=== PATIENT | male | born 1950 | race Caucasian/White ===

== ENCOUNTER 2016-10-18 16:37 | Inpatient (IN) | payer OTHER ==
[~2016-10-18] VITALS: Ht 188 cm; Wt 125.6 kg
--- NOTE | ~2016-10-18 | OR ---
PATIENT'S NAME: TATIANA HAYWOOD [facility] AGE: 66 Y [address] ROOM: [place] [address] LOCATION: GPCU ADMIT DATE: 10/18/2016 OR/Procedure Report DISCHARGE DATE: FAMILY PHYSICIAN: Parminder Mchugh MD ATTENDING PHYSICIAN: RODOLFO GOMEZ SURGEON: Valdemar Dhaliwal MD ANIMAL ASSISTED THERAPIST: DATE OF PROCEDURE: 10/19/2016 PREOPERATIVE DIAGNOSIS: Bleeding anorectal ulcer. POSTOPERATIVE DIAGNOSIS: Bleeding anorectal ulcer. PROCEDURES PERFORMED: Suture ligation of bleeding anorectal ulcer. ANESTHESIA: General endotracheal. INDICATIONS: The patient is a 66-year-old male with a history of ulcerative colitis, who presented to the hospital with rectal pain and bleeding yesterday. He underwent an anoscopy today, which revealed a bleeding anorectal ulcer. This could not be controlled endoscopically, and therefore, I was asked to see the patient for surgery. Risks and benefits of procedure were discussed with the patient's since the patient had just finished anesthesia, and consent was obtained. PROCEDURE IN DETAIL: After general anesthesia was obtained, the patient was prepped and draped in the usual sterile fashion. The patient was placed into lithotomy position prior to prepping and draping. Anoscope was placed and we were able to see an ulceration that was bleeding. It was approximately 1 cm in length at the anorectal verge. A 3-0 chromic suture was used to ligate the ulcer. Lidocaine with epinephrine was infused into this site for pain control. Careful check of the remainder of the anorectal area revealed no areas of bleeding. A Gelfoam sponge was placed in the anorectal area as well, and gauze padding was placed over the rectum that was held in place with net underwear. COUNT RESULTS: At the end of the procedure, sponge and needle counts were correct. ESTIMATED BLOOD LOSS: Minimal. POSTOPERATIVE CONDITION: The patient was transferred to the PACU, extubated in stable condition. PATIENT'S NAME: TATIANA HAYWOOD [facility] AGE: 66 Y [address] ROOM: [place] [address] LOCATION: GPCU ADMIT DATE: 10/18/2016 OR/Procedure Report DISCHARGE DATE: FAMILY PHYSICIAN: Parminder Mchugh MD ATTENDING PHYSICIAN: RODOLFO GOMEZ MD AZEEM IZAGUIRRE/alessandra /[id number] d: 10/19/16 2336 t: 10/22/16 2229, OPERATIVE SUMMARY
--- NOTE | ~2016-10-18 | ER ---
PATIENT'S NAME: TATIANA HAYWOOD [facility] AGE: 66 Y [address] ROOM: [place] [address] LOCATION: GPCU ADMIT DATE: 10/18/2016 ER/Outpatient Report DISCHARGE DATE: FAMILY PHYSICIAN: Parminder Mchugh MD ATTENDING PHYSICIAN: ORDOLFO GOMEZ Time of Patient's Arrival: 1637 hours. Time of Patient's Evaluation: 1650 hours. CHIEF COMPLAINT: Rectal bleeding. HISTORY OF PRESENT ILLNESS: This is a 66-year-old male who presents to the ER with rectal bleeding. He states he has history of ulcerative colitis. He states he has issues at times with constipation. He states he used an enema yesterday morning and had some pain associated with that and afterwards had multiple bowel movements that were bright red blood. He states now every time he has a bowel movement he has bright red blood with clots. He states that he had to use his 's pads in his underwear to catch the blood last evening, but now he only notices blood when he has a bowel movement. He states he is currently on Remicade for his ulcerative colitis and had that injection a few weeks ago. He also had a recent stent placed in his heart by Dr. Carranza at [facility], and since that time, he has been on aspirin and Plavix. He states he has not been running any fevers at home. He describes it he has crampy abdominal pain in his lower abdomen. He has had no troubles with urination, no cough, no shortness of breath or chest pain. ALLERGIES: PHENERGAN. MEDICATIONS: Please see medication list in nurse's notes. PAST MEDICAL HISTORY: 1. Ulcerative colitis. 2. Chronic kidney disease, stage 3. 3. Diabetes type 2. 4. Hypertension. 5. Coronary artery disease with history of CABG and recent cardiac stent placement. 6. Hyperlipidemia. 7. Acid reflux. 8. Atrial fibrillation. 9. History of ventricular tachycardia and ventricular fibrillation. He does PATIENT'S NAME: TATIANA HAYWOOD [facility] AGE: 66 Y [address] ROOM: [place] [address] LOCATION: GPCU ADMIT DATE: 10/18/2016 ER/Outpatient Report DISCHARGE DATE: FAMILY PHYSICIAN: Parminder Mchugh MD ATTENDING PHYSICIAN: RODOLFO GOMEZ have an AICD implantation. He has systolic and diastolic congestive heart failure. SOCIAL HISTORY: He does have a history of smoking in the past and drinks alcohol socially. REVIEW OF SYSTEMS: All systems were reviewed and were negative with the exception of those discussed in the HPI. PHYSICAL EXAMINATION: VITAL SIGNS: Height 6 feet 2 inches stated, weight 128.3 kg taken, blood pressure is 149/80, pulse 76, respirations 16, temperature 96.9 degrees tympanically, and saturations 97% on room air. Sayner Coma Score is 15. GENERAL: Alert and obese male, in no obvious distress. HEENT: Head: Normocephalic. He does display moist mucous membranes. Eyes: Pupils are equal and reactive to light. NECK: Supple. No lymphadenopathy. LUNGS: Clear to auscultation bilaterally. HEART: Regular rate and rhythm. ABDOMEN: Soft. Does have some mild tenderness in his lower abdomen with palpation. No guarding. No rebound tenderness. Has good bowel sounds throughout. No masses are palpated. EXTREMITIES: No clubbing or cyanosis. He does have bilateral 1+ pitting edema to his lower extremities. NEURO: Cranial nerves 2 through 12 grossly intact. Gait is steady without assistance. SKIN: Warm, dry, and intact. LABORATORY DATA: Clot was drawn. CBC: White count is 13.2, hemoglobin is 12.8, platelets 261. INR is 1.01. CMS: Sodium 141, potassium 3.5, glucose 165, BUN 30, creatinine 1.9, and estimated GFR is 36. Fecal stool sample was obtained and does show positive occult blood, a few white blood cells. Ova and parasites screens were negative. C. difficile was negative. CT scan of the abdomen does show he has some rectal wall thickening with possible intraluminal blood, no mass noted. IMPRESSION: 1. Rectal bleeding with history of ulcerative colitis. 2. Acute on chronic kidney disease. 3. History of coronary artery disease with recent cardiac stent placement. 4. History of insulin-dependent diabetes. Hypokalemia. PATIENT'S NAME: TATIANA HAYWOOD [facility] AGE: 66 Y [address] ROOM: [place] [address] LOCATION: GPCU ADMIT DATE: 10/18/2016 ER/Outpatient Report DISCHARGE DATE: FAMILY PHYSICIAN: Parminder Mchugh MD ATTENDING PHYSICIAN: RODOLFO GOMEZ ASSESSMENT AND PLAN: Discussed the patient's care Dr. Howard. The patient's primary care physician is Dr. Parminder Mchugh. Therefore, we called the Hospitalist Service and Dr. Gomez will be admitting the patient. We will be turning the care over to Dr. Gomez in the Hospitalist Service at this time. The patient understands and agrees with care. BRITT DELGADILLO PA-C FOR MD KJ PIERRE/alessandra /[id number] d: t: 10/23/16 1329, OUTPATIENT REPORT
--- NOTE | ~2016-10-18 | CON ---
PATIENT'S NAME: TATIANA HAYWOOD [facility] AGE: 66 Y [address] ROOM: [place] [id number] LOCATION: GPCU ADMIT DATE: 10/18/2016 Consultation DISCHARGE DATE: 10/20/2016 FAMILY PHYSICIAN: Parminder Mchugh MD ATTENDING PHYSICIAN: Georges Stone DATE OF CONSULTATION: 10/19/2016 PRINCIPAL DIAGNOSES: 1. Bleeding from anorectal ulcer. 2. Inflammatory bowel disease. 3. Obesity. HISTORY OF PRESENT ILLNESS: The patient is a 66-year-old morbidly obese male who has a history of inflammatory bowel disease as well as coronary artery disease, who is on both aspirin and Plavix. The patient presented yesterday with anal pain and rectal bleeding. He underwent endoscopy today by Dr. Chu, one of the endoscopists. Dr. Chu identified bleeding at the anorectal junction, but he could not control the bleeding. He therefore asked me to come in in consultation. I was able to observe Dr. Chu's attempt to inject the bleeding area with more epinephrine, but it unfortunately continued to bleed post injection. Therefore, I discussed with the patient's the risk and benefits of examination under anesthesia, anoscopy, suture closure of the bleeding ulcer. PAST MEDICAL HISTORY: Significant for ulcerative colitis, chronic renal disease, type 2 diabetes, hypertension, coronary artery disease, hyperlipidemia, gastroesophageal reflux disease, atrial fibrillation, and morbid obesity. PAST SURGICAL HISTORY: None. The patient has had coronary artery stents placed, however. ALLERGIES: PHENERGAN AND PHENOTHIAZINE. MEDICATIONS: 1. Plavix. 2. Aspirin. PHYSICAL EXAMINATION: GENERAL: Morbidly obese, who is recovering from anesthesia. He is somewhat drowsy, sleepy. LUNGS: Clear. HEART: Regular. PATIENT'S NAME: TATIANA HAYWOOD [facility] AGE: 66 Y [address] ROOM: [address] [address] LOCATION: GPCU ADMIT DATE: 10/18/2016 Consultation DISCHARGE DATE: 10/20/2016 FAMILY PHYSICIAN: Parminder Mchugh MD ATTENDING PHYSICIAN: Georges Stone ABDOMEN: Obese, but soft. Nontender. EXTREMITIES: Warm. NEUROLOGIC: He appears intact. Again, very sleepy, recovering from the anesthesia. LABORATORY VALUES: Pending following his procedure. ASSESSMENT: This is a 66-year-old male with a bleeding ulcer at the anorectal verge. PLAN: I discussed the risks and benefits with the patient's , consent was obtained. The plan is to do anoscopy and suture closure of the bleeding ulcer. MD AZEEM IZAGUIRRE/alessandra /[id number] d: t: 10/23/16 0759, CONSULTATION REPORT
--- NOTE | ~2016-10-18 | CON ---
PATIENT'S NAME: TATIANA HAYWOOD [facility] AGE: 66 Y [address] ROOM: [address] [address] LOCATION: GPCU ADMIT DATE: 10/18/2016 Consultation DISCHARGE DATE: FAMILY PHYSICIAN: Parminder Mchugh MD ATTENDING PHYSICIAN: RODOLFO GOMEZ DATE OF CONSULTATION: 10/19/2016 REASON FOR CONSULTATION: Bright red blood per rectum, history of ulcerative colitis. HISTORY OF PRESENT ILLNESS: This is a very pleasant 66-year-old gentleman who is known to our Gastroenterology Services, has a previous diagnosis of ulcerative colitis. The patient is currently on Remicade infusion with the last infusion being completed approximately 2 weeks ago. The patient states that he suffers from chronic constipation. He did utilize enema per rectum. This did result in multiple bowel movements, though began having significant bright red blood per rectum since Saturday. The patient denies any associated fever or chills. He also denies any abdominal pain. He does state that he has rectal pain that has progressively worsened over the past few days. He does also have a history of coronary artery disease with recent stent placed in April 2016, currently taking aspirin and Plavix. He also has AICD for history of ventricular tachycardia and ventricular fibrillation. The patient denies any acute chest pain, chest pressure, shortness of breath, abdominal pain, nausea, vomiting, fever, or chills. PAST MEDICAL HISTORY: Ulcerative colitis, currently on Remicade; chronic kidney disease, stage 3; diabetes, type 2; hypertension; coronary artery disease, status post CABG in 2005, also with recent cardiac stents placed in 2016; hyperlipidemia; gastroesophageal reflux disease; history of atrial fibrillation; and history of ventricular tachycardia and ventricular fibrillation, status post AICD implantation with interrogation approximately 2 months ago. PAST SURGICAL HISTORY: In review of medical records, it appears the patient underwent a colonoscopy on 02/09/2015. He was found to have acute proctosigmoiditis to 35 cm, and colon mucosa looked normal from there. He also had a friable sessile polyp in the rectum that resulted as an inflammatory pseudopolyp. SOCIAL HISTORY: The patient is . Former cigarette smoker and quit in 2005. Active social alcohol drinker. Denies any alcohol withdrawal or abuse. Denies any illicit drug use. [facility] 66 Y [address] ROOM: [id number] [place], [place] [address] LOCATION[facility] ADMIT DATE: 10/18/2016 Consultation DISCHARGE DATE: FAMILY PHYSICIAN: Parminder Mchugh MD ATTENDING PHYSICIAN: RODOLFO GOMEZ FAMILY HISTORY: The patient's father had heart problems and diabetes, type 2. The patient's mother also had heart problems. He denies any known gastrointestinal diseases or cancers to his knowledge. ALLERGIES: PROMETHAZINE. CURRENT MEDICATIONS: Please refer to the medication administration record. REVIEW OF SYSTEMS: An all-point review of systems was completed, all were negative except for those identified in the History of Present Illness. PHYSICAL EXAMINATION: GENERAL: A pleasant 66-year-old gentleman, lying in bed, who appears to be in no acute distress. VITAL SIGNS: Temperature 97.8, pulse of 70, respirations of 16, blood pressure 148/73, and oxygen saturation is 95% on room air. SKIN : [place], warm, and dry. No jaundice. HEENT: Head is normocephalic and atraumatic. Pupils are equal, round, and reactive to light. Sclerae are clear, nonicteric. Oral mucosa is pink and moist. No thyromegaly. NECK: Soft and supple. CARDIOVASCULAR: Normal S1 and S2. RESPIRATORY: Respirations even and unlabored. Lungs are clear to auscultation. ABDOMEN: Soft, round, nontender, and nondistended. Bowel sounds are positive x4 quadrants. MUSCULOSKELETAL: No muscle weakness or atrophy. EXTREMITIES: No edema. NEUROLOGIC: Grossly nonfocal. LABORATORY AND DIAGNOSTIC DATA: White blood cell count of 13.5, hemoglobin of 12.1, hematocrit of 36.1, and platelets of 237. Chemistry panel includes a glucose of 242, BUN of 27, creatinine of 1.6, sodium 140, potassium of 4.2, chloride of 110 and CO2 of 23. Liver function tests are within normal limits. ESR is 23. Prothrombin time 10.6 and INR is 1.01. CRP elevated at 1.04. ASSESSMENT AND PLAN: Again, this is a very pleasant 66-year-old gentleman with a past medical history significant for ulcerative colitis, currently on Remicade infusions. PATIENT'S NAME: TATIANA HAYWOOD [facility] AGE: 66 Y [address] ROOM: [id number] [place], [place] [address] LOCATION: [facility] ADMIT DATE: 10/18/2016 Consultation DISCHARGE DATE: FAMILY PHYSICIAN: Parminder Mchugh MD ATTENDING PHYSICIAN: RODOLFO GOMEZ The patient was admitted with complaints of severe bright red blood per rectum. The patient's hemoglobin has been stable, though further workup is warranted. At this time, we will go forth with a flexible sigmoidoscopy for further evaluation of the patient's rectal bleeding in lieu of the patient's known history of ulcerative colitis. Further recommendations to be given status post flexible sigmoidoscopy. Thank you for this consult. BEVERLY GOODWIN APRN FOR TAY KHALIL MD MMF/modl /[id number] d: 10/19/16 1727 t: 10/24/16 1210, CONSULTATION REPORT
--- NOTE | ~2016-10-18 | HP ---
PATIENT'S NAME: TATIANA [facility]OD [facility] AGE: 66 Y [address] ROOM: [place] [address] LOCATION: [facility] ADMIT DATE: 10/18/2016 History & Physical DISCHARGE DATE: FAMILY PHYSICIAN: Parminder Mchugh MD ATTENDING PHYSICIAN: RODOLFO GOMEZ DATE OF SERVICE: CHIEF COMPLAINT: Rectal pain and also bright red blood per rectum. HISTORY OF PRESENT ILLNESS: This is a 66-year-old male who says that he has been suffering from constipation chronically and then yesterday morning, he used enema per rectum and he had multiple bowel movements, but they were associated with bright red blood per rectum. At the same time, he also had this pain in the rectal area. He has a history of longstanding ulcerative colitis and has had a similar presentation in the past like these. The patient denies any fever or chills and states that the rectal pain has gotten a little bit worse than his usual rectal pain. The patient uses Remicade injection for his ulcerative colitis and the last injection was few weeks ago. He also has a history of coronary artery disease and recent stent was placed in April [address] Carranza, at the [facility] and has been taking aspirin and Plavix since then. He also has AICD for his history of ventricular tachycardia and ventricular fibrillation in the past and the last interrogation of the AICD was 2 months ago according to the patient and it was normal. REVIEW OF SYSTEMS: As mentioned in the history of present illness. All other systems were reviewed and were negative except those mentioned in history of present illness. PAST MEDICAL HISTORY: 1. Ulcerative colitis since the year 2001. 2. CKD stage 3. Baseline creatinine is about 1.6. 3. Diabetes type 2. 4. Hypertension. 5. Coronary artery disease, status post CABG back in 2005 and also recent cardiac stents back in April 2016 at the [facility] by Dr. Carranza. 6. Hyperlipidemia. 7. Gastroesophageal reflux disease. 8. Atrial fibrillation. 9. History of ventricular tachycardia and ventricular fibrillation, status post AICD implantation. Last interrogation was 2 months ago and it was PATIENT'S NAME: TATIANA [facility]AYWOOD [facility] AGE: 66 Y [address] ROOM: [address] [place] [address] LOCATION: [facility] ADMIT DATE: 10/18/2016 History & Physical DISCHARGE DATE: FAMILY PHYSICIAN: Parminder Mchugh MD ATTENDING PHYSICIAN: RODOLFO GOMEZ normal according to the patient. 10. History of combined systolic and diastolic congestive heart failure and ejection fraction was 45-50 back on transthoracic echo in year 2013. ALLERGIES: 1. PHENERGAN. 2. PHENOTHIAZINE. HOME MEDICATIONS: Currently is being reconciled. 1. He does take aspirin. 2. Plavix. SOCIAL HISTORY: The patient was a former cigarette smoker. He quit in year 2005. He used to smoke about 2 packs per day for 20 years. He is an active social alcohol drinker. He denies any alcohol withdrawal or alcohol abuse. He denies any illegal drug use. FAMILY HISTORY: Father has heart problem and diabetes type 2. Details are not clear about the heart. Mother also has heart problem, but details are not clear. The patient does not remember much about the details. PHYSICAL EXAMINATION: VITAL SIGNS: At the time of evaluation, temperature 98, heart rate 70, respirations 14, blood pressure 137/86, saturation 98% on room air. GENERAL APPEARANCE: Alert and oriented x3. Currently, in no acute distress. HEENT: Pupils are equally round and reactive to light. Extraocular muscles intact. Anicteric sclerae. Nasal turbinates are normal bilaterally. Moist oral mucosa. NECK: No JVD. CARDIOVASCULAR: Regular rate and rhythm. No murmur, no rubs, no gallops. Normal S1, S2. RESPIRATORY: Clear to auscultation. No rales, no rhonchi, no wheezing, no crackles. ABDOMEN: Obese, soft, nontender, nondistended, bowel sounds are present. No mass. EXTREMITIES: He has bilateral pitting edema +1 in bilateral lower extremities. NEUROLOGICAL: Grossly nonfocal. SKIN: No ulcer, no rash, no cyanosis. LABORATORY DATA: Lactic acid 0.6, white blood cells 13.2, hemoglobin 12.8, hematocrit 38.8, PATIENT'S NAME: TATIANA HAYWOOD [facility] AGE: 66 Y [address] ROOM: [place] [address] LOCATION: [facility] ADMIT DATE: 10/18/2016 History & Physical DISCHARGE DATE: FAMILY PHYSICIAN: Parminder Mchugh MD ATTENDING PHYSICIAN: GOMEZ,RENYOLDS platelets 261, glucose 165. BUN 30, creatinine 1.9. Sodium 141, potassium 3.5, chloride 109, CO2 25, calcium 8.4. Total protein 7.3, albumin 3.1, AST 16, ALT 23, alkaline phosphatase 113, total bilirubin 0.5, anion gap is 10.5, globulin 4.2. ESR 21, A1c 8.6. INR 1.01, PTT 24. Urinalysis is pending. GFR 36, CRP 1.04, procalcitonin less than 0.05. IMAGING STUDY: CT of the abdomen and pelvis without contrast performed on admission based on the preliminary review, it was read as no bowel obstruction or suspicious mass lesion. Increased attenuation of contents within the rectum suggesting blood products. Mild rectal wall thickening may be reactive or primary proctitis. Prior cholecystectomy and splenectomy. Stable appearance of the pancreatic tail. ASSESSMENT AND PLAN: 1. Regarding his ulcerative colitis flare: We will consult GI. I have already spoken to the on-call Gastroenterology, Dr. Chu, and the plan will be n.p.o. after a 5 a.m. in the morning for a flexible sigmoidoscopy and can have a clear liquid diet until then. I will cover him with IV ciprofloxacin and IV Flagyl given the patient has leukocytosis and has active hematochezia. We will give IV fluids for hydration and continue IV Solu-Medrol, which was already started in the emergency room. We will be giving him with 30 mg of IV Solu-Medrol twice a day. Blood culture 2 sets right now. Repeat labs in the morning. Further plan will depend on clinical course. The patient is hemodynamically stable. Does not require any blood transfusion, but to be safe, I will be checking blood type and screen, and another hematocrit and hemoglobin later on, especially if he keeps having hematochezia. 2. Regarding his acute kidney injury on chronic kidney disease stage 3: This is obvious from the hypovolemia from the gastrointestinal loss. We will be giving IV fluids for hydration and I expect the kidney function to improve. Hold off on the home diuretics and ESTEPHANIE inhibitor. 3. Regarding his history of coronary artery disease, status post CABG back in year 2005 and cardiac stent back in April 2016: The patient is still on aspirin and Plavix. This are very important to prevent stent thrombosis due to recent cardiac stents placed in [facility] by Dr. Carranza. However, in the setting of active gastrointestinal bleeding and he already took those medications today or tomorrow morning, I will defer to the morning hospitalist to get in touch with Dr. Carranza to see if he would like to hold off, or the patient started having hematochezia, or continue this medication. Continue with statin and also with beta stephanie with holding parameter. We will hold ESTEPHANIE inhibitor due to the acute kidney injury on chronic kidney disease stage 3. 4. Regarding his AICD implantation, the patient says that his most recent PATIENT'S NAME: TATIANA HAYWOOD [facility] AGE: 66 Y [address] ROOM: [id number] [place], [place] [address] LOCATION: [facility] ADMIT DATE: 10/18/2016 History & Physical DISCHARGE DATE: FAMILY PHYSICIAN: Parminder Mchugh MD ATTENDING PHYSICIAN: RODOLFO GOMEZ interrogation was 2 months ago and it was normal. Therefore, no active issue. 5. I will be getting an EKG right now and also cycle cardiac enzymes to make sure there is no active cardiac issue in the setting of hematochezia given that the patient will be undergoing a flexible sigmoidoscopy. 6. Regarding his history of combined systolic and diastolic congestive heart failure: Currently, the patient is dry and having acute kidney injury on chronic kidney disease stage 3. We will be giving gentle IV fluids for hydration. 7. Regarding his history of diabetes type 2: Check A1c. Continue home long- acting insulin with Levemir 50 units. However, we will cut down by more than half to prevent hypoglycemia. Therefore, I will be giving him 20 units every night instead. In addition, we will add a sliding scale with NovoLog a.c. and h.s. while eating and titrate as needed. 8. Regarding his hypertension, we will hold off on the blood pressure medication except beta stephanie due to his recent history of cardiac stents, but withholding parameter. 9. Regarding his hyperlipidemia: Continue statin. 10. Regarding his history of atrial fibrillation: Continue Telemetry monitoring. He has AICD. Continue beta-stephanie with holding parameter. 11. His most recent stress test was done in the year 2013, it was negative. 12. For his deep vein thrombosis prophylaxis: He will be on compression devices in the setting of active hematochezia. Time spent in care on the day of admission 50 minutes, where 20 minutes were spent on chart review, and the rest of the time was spent on interview and physical examination, also on counseling. The counseling includes going over the plan of care with the patient and addressing all the questions and concerns that the patient had, and also going over the plan of care with the patient. Further plan will depend on clinical course. I also went over the plan of care with the nurse. MD AZEEM YADAV/alessandra /[id number] D: T: [id number] HISTORY & PHYSICAL
--- NOTE | ~2016-10-18 | DS ---
PATIENT'S NAME: TATIANA HAYWOOD [facility] AGE: 66 Y [address] ROOM: [address] [address] LOCATION: [facility]PCU ADMIT DATE: 10/18/2016 Discharge Summary DISCHARGE DATE: 10/20/2016 FAMILY PHYSICIAN: Parminder Mchugh MD ATTENDING PHYSICIAN: Georges Stone DISCHARGE DIAGNOSES: 1. Gastrointestinal bleed, secondary to anorectal ulcer. 2. Ulcerative colitis. 3. Chronic kidney disease, stage 3. 4. Diabetes mellitus, type 2. 5. Coronary artery disease, status post distant revascularization. 6. Gastroesophageal reflux disease. 7. Atrial fibrillation with pacer. 8. Obesity. PROCEDURES: Upper and lower GI endo by Dr. Chu, anoscopy with surgery by Dr. Dhaliwal. REASON FOR ADMISSION: Bright red rectal bleeding. The patient looks considerably better than he did when he came in, comfortable, no longer bleeding, had sutures placed in the OR post upper and lower GI endoscopy, which showed the anorectal ulcer actively bleeding. LABORATORY DATA: Recent blood sugars have been in the 242 to 375 range. Lactate was benign. His white count this morning after steroids was up to 18.9, hemoglobin 10.3, down from admission of 12.8, and platelets at 235. The BUN and creatinine were 27 and 1.6, this morning improved from 30 and 1.9, and electrolytes were normal. ESR was 23, hemoglobin A1c 8.6, and GFR was 45. CRP 0.87 down from 1.04. DISCHARGE INSTRUCTIONS: I just got a note from Dr. Dhaliwal he wants Colace 100 mg twice daily on a high-fiber diet and no steroids; so, he will be discharged on that plus medications per nursing med recon form. Diet will be high-fiber, activity will be ad oswaldo, and followup will be with Surgery in 1 week. MD RUDY GAMBLE/modl PATIENT'S NAME: TATIANA HAYWOOD [facility] AGE: 66 Y [address] ROOM: [id number] [place], [place] [address] LOCATION: [facility] ADMIT DATE: 10/18/2016 Discharge Summary DISCHARGE DATE: 10/20/2016 FAMILY PHYSICIAN: Parminder Mchugh MD ATTENDING PHYSICIAN: Georges Stone /[id number] d: 10/21/16 0007 t: 10/21/16 1719, DISCHARGE SUMMARY
[~2016-10-18 16:37] MED LIST: ALDACTONE25 MG PO; ASACOL HD800 MG PO; ASPIRIN EC81 MG PO; COREG12.5 MG PO; CPAP INH; CREON 121 CAP PO; FISH OIL 1,0001 EACH PO; IMDUR60 MG PO; IRON65 PO; K-TAB ER20 MEQ PO; LASIX40 MG PO; LEVEMIR100 UNIT/1 SUB-Q; LISINOPRIL40 MG PO; NORVASC5 MG PO; NOVOLOG100 UNIT/M SUB-Q; PACERONE200 MG PO; PLAVIX75 MG PO; PRAVACHOL80 MG PO; PRILOSEC20 MG PO; PROVENTIL OR V6.7 GM INH; THERAGRAN-M1 TAB PO; WELLBUTRIN XL300 M1 PO; XARELTO20 MG PO
[2016-10-18 18:27] LABS: BASOPHIL # 0.1 K/uL (0.0-0.2); BASOPHIL % 0.7 %; EOSINOPHIL # 0.4 K/uL (0.0-0.5); EOSINOPHIL % 2.7 %; HEMATOCRIT 38.8 % (37.0-53.0); HEMOGLOBIN 12.8 g/dL (11.0-16.0); IMMATURE GRANULOCYTE # 0.1 K/uL (0.0-0.3); IMMATURE GRANULOCYTE % 0.6 %; LYMPHOCYTE # 3.9 K/uL (0.8-4.0); LYMPHOCYTE % 29.9 %; MCH 30.7 pg (27.0-34.0); MONOCYTE # 1.3 K/uL (0.0-1.0); MPV 10.3 fl (9.4-12.4); NEUTROPHIL # (ANC) 7.4 K/uL (1.4-9.0); NEUTROPHIL % 56.1 %; NRBC % 0 /100WBC (0-0.00); PLATELET COUNT 261 K/uL (150-450); RBC 4.17 M/uL (3.50-5.50); RDW-CV 15.1 % (11.9-14.6); WBC 13.2 K/uL (4.0-11.0)
[2016-10-18 18:34] LABS: INR - (THERAPEUTIC) 1.01 (0.92-1.07); PROTIME 10.6 SECONDS (9.8-11.4); PTT 24 SECONDS (25-32)
[2016-10-18 18:45] LABS: ALBUMIN 3.1 gm/dL (3.5-5.0); ANION GAP 10.5 (10.0-19.0); CALCIUM 8.4 mg/dL (8.5-10.5); CREATININE 1.9 mg/dL (0.6-1.3); POTASSIUM 3.5 mMol/L (3.7-5.1); TOTAL BILIRUBIN 0.5 mg/dL (0.0-1.5); TOTAL PROTEIN 7.3 g/dL (6.0-8.4)
[2016-10-19 01:33] LABS: HEMATOCRIT 36.2 % (37.0-53.0); HEMOGLOBIN 11.8 g/dL (11.0-16.0)
[2016-10-19 02:29] LABS: HEMATOCRIT 36.1 % (37.0-53.0); HEMOGLOBIN 12.1 g/dL (11.0-16.0); MCH 31.5 pg (27.0-34.0); MCHC 33.5 gm/dL (32.0-36.5); MPV 10.8 fl (9.4-12.4); RBC 3.84 M/uL (3.50-5.50); RDW-CV 15.4 % (11.9-14.6); WBC 13.5 K/uL (4.0-11.0)
[2016-10-19 02:48] LABS: ANION GAP 11.2 (10.0-19.0); CALCIUM 7.8 mg/dL (8.5-10.5); CREATININE 1.6 mg/dL (0.6-1.3); POTASSIUM 4.2 mMol/L (3.7-5.1)
[2016-10-19 02:50] LABS: CPK 129 IU/L (35-332)
[2016-10-19 07:15] LABS: BILIRUBIN URINE NEGATIVE (NEGATIVE); BLOOD URINE 10 /UL (NEGATIVE); COLOR URINE YELLOW (YELLOW); GLUCOSE URINE 1000 mg/dL (NEGATIVE); KETONE URINE 50 mg/dL (NEGATIVE); LEUKOCYTES URINE NEGATIVE /UL (NEGATIVE); NITRITE URINE NEGATIVE (NEGATIVE); PH URINE 6.5 (4.0-8.0); PROTEIN URINE 100 mg/dL (NEGATIVE); TURBIDITY URINE CLEAR (CLEAR); UROBILINOGEN URINE NORMAL (NORMAL)
[2016-10-19 07:31] LABS: BACTERIA URINE NEGATIVE (NEGATIVE); EPITHELIAL URINE NEGATIVE #/HPF (NEGATIVE); RBC URINE RARE #/HPF (NEGATIVE); WBC URINE NEGATIVE #/HPF (NEGATIVE)
[2016-10-19] MEDS ORDERED: REMICADE100 MG IV (11:44)
[2016-10-19] MEDS ORDERED: WELLBUTRIN XL300 M2 PO (11:45)
[2016-10-19 14:19] LABS: BASOPHIL % 0.1 %; HEMATOCRIT 32.6 % (37.0-53.0); HEMOGLOBIN 10.6 g/dL (11.0-16.0); IMMATURE GRANULOCYTE # 0.1 K/uL (0.0-0.3); IMMATURE GRANULOCYTE % 0.7 %; LYMPHOCYTE # 1.4 K/uL (0.8-4.0); LYMPHOCYTE % 10.3 %; MCH 31.1 pg (27.0-34.0); MCHC 32.5 gm/dL (32.0-36.5); MCV 95.6 fl (83.0-98.0); MONOCYTE # 0.2 K/uL (0.0-1.0); MONOCYTE % 1.4 %; MPV 10.5 fl (9.4-12.4); NEUTROPHIL # (ANC) 11.7 K/uL (1.4-9.0); NEUTROPHIL % 87.5 %; NRBC % 0 /100WBC (0-0.00); PLATELET COUNT 228 K/uL (150-450); RBC 3.41 M/uL (3.50-5.50); RDW-CV 15.5 % (11.9-14.6); WBC 13.4 K/uL (4.0-11.0)
[2016-10-20 04:17] LABS: BASOPHIL % 0.1 %; HEMOGLOBIN 10.3 g/dL (11.0-16.0); IMMATURE GRANULOCYTE # 0.2 K/uL (0.0-0.3); IMMATURE GRANULOCYTE % 0.8 %; LYMPHOCYTE # 1.5 K/uL (0.8-4.0); LYMPHOCYTE % 8.1 %; MCH 31.7 pg (27.0-34.0); MCHC 33.2 gm/dL (32.0-36.5); MCV 95.4 fl (83.0-98.0); MONOCYTE # 0.6 K/uL (0.0-1.0); MONOCYTE % 3.2 %; MPV 10.8 fl (9.4-12.4); NEUTROPHIL # (ANC) 16.6 K/uL (1.4-9.0); NEUTROPHIL % 87.8 %; NRBC % 0 /100WBC (0-0.00); PLATELET COUNT 235 K/uL (150-450); RBC 3.25 M/uL (3.50-5.50); RDW-CV 15.7 % (11.9-14.6)
[2016-10-20 04:23] LABS: WBC 18.9 K/uL (4.0-11.0)
[2016-10-20] MEDS ORDERED: COLACE100 MG PO (13:02)
== END 2016-10-20 14:30 | disposition disaster alternative care site (69) | DRG 348 ==
LOC: GMED 16:37 → GPCU 20:25
PROVIDERS: Physician Assistant Medical; Surgery; ADMIT Internal Medicine
PROC: 0DLP8ZZ Occlusion of Rectum, Via Natural or Artificial Opening Endoscopic (ICD-10-PCS; principal; 2016-10-19)
PROC: 0W3P8ZZ Control Bleeding in Gastrointestinal Tract, Via Natural or Artificial Opening Endoscopic (ICD-10-PCS; 2016-10-19)
DX: K62.6 Ulcer of anus and rectum (principal); K62.5 Hemorrhage of anus and rectum; E11.22 Type 2 diabetes mellitus with diabetic chronic kidney disease; N17.9 Acute kidney failure, unspecified; I13.0 Hypertensive heart and chronic kidney disease with heart failure and stage 1 through stage 4 chronic kidney disease, or unspecified chronic kidney disease; N18.3 Chronic kidney disease, stage 3 (moderate); I50.42 Chronic combined systolic (congestive) and diastolic (congestive) heart failure; K51.90 Ulcerative colitis, unspecified, without complications; Z87.891 Personal history of nicotine dependence; Z79.4 Long term (current) use of insulin; I48.91 Unspecified atrial fibrillation; E78.5 Hyperlipidemia, unspecified; E87.6 Hypokalemia; I25.10 Atherosclerotic heart disease of native coronary artery without angina pectoris; G47.33 Obstructive sleep apnea (adult) (pediatric); E66.01 Morbid (severe) obesity due to excess calories; Z68.35 Body mass index [BMI] 35.0-35.9, adult; Z95.1 Presence of aortocoronary bypass graft; Z95.810 Presence of automatic (implantable) cardiac defibrillator; H91.90 Unspecified hearing loss, unspecified ear; Z95.5 Presence of coronary angioplasty implant and graft; Z86.14 Personal history of Methicillin resistant Staphylococcus aureus infection; Z79.02 Long term (current) use of antithrombotics/antiplatelets; Z79.82 Long term (current) use of aspirin; Z88.8 Allergy status to other drugs, medicaments and biological substances; K59.09 Other constipation; K21.9 Gastro-esophageal reflux disease without esophagitis
CPT/HCPCS: J0171; J0690; J0744; J2001; J2920; J3480; J7030; J7040; J7120